=== PATIENT | female | born 1995 | race Caucasian/White ===

== ENCOUNTER 2017-08-14 09:45 | Outpatient (CLI) | payer BC ==
[2017-08-14 11:04] LABS: WHITE BLOOD COUNT 5.2 10^3/ul (4.8-10.8)
[2017-08-14 11:04] LABS: ADD MAN DIFF? NO; BASOPHILS % 0.2 % (0.0-2.0); EOSINOPHILS % 0.8 % (0.0-7.0); HEMATOCRIT 36.3 % (37.0-47.0); HEMOGLOBIN 12.4 g/dl (12.0-16.0); LYMPHOCYTES # 1.3 10^3/ul (0.8-2.9); LYMPHOCYTES % 24.1 % (15.0-51.0); MEAN CORPUSCULAR HEMOGLOBIN 31.1 pg (29.0-33.0); MEAN CORPUSCULAR HGB CONC 34.2 g/dl (32.0-37.0); MEAN PLATELET VOLUME 11.3 fl (7.4-10.4); MONOCYTE # 0.3 10^3/ul (0.3-0.9); MONOCYTES % 5.8 % (0.0-11.0); NEUTROPHIL # 3.6 10^3/ul (1.6-7.5); NEUTROPHILS % 68.5 % (39.0-77.0); PLATELET COUNT 180 10^3/UL (140-415); RED BLOOD COUNT 3.99 10^6/ul (4.20-5.40); RED CELL DISTRIBUTION WIDTH 12.9 % (11.5-14.5)
[2017-08-14 11:05] LABS: COLLECTION PERIOD 24 hrs
[2017-08-14 11:13] LABS: ADD UMIC YES; UR ASCORBIC ACID NEGATIVE (NEGATIVE); UR BILIRUBIN (Dip) NEGATIVE (NEGATIVE); UR BLOOD (Dip) NEGATIVE (NEGATIVE); UR CLARITY CLEAR (CLEAR); UR COLOR STRAW (YELLOW); UR GLUCOSE (Dip) NEGATIVE (NEGATIVE); UR KETONES (Dip) NEGATIVE (NEGATIVE); UR LEUKOCYTE ESTERASE (Dip) 2+ Leu/ul (NEGATIVE); UR NITRITE (Dip) NEGATIVE (NEGATIVE); UR RBC 5 /HPF (0-5); UR SPECIFIC GRAVITY (Dip) 1.004 (1.003-1.030); UR SQUAMOUS EPITHELIAL CELL FEW /HPF (FEW); UR TOTAL PROTEIN (Dip) NEGATIVE (NEGATIVE); UR UROBILINOGEN (Dip) NEGATIVE (NEGATIVE); UR WBC 5 /HPF (0-5)
[2017-08-14 11:26] LABS: ALANINE AMINOTRANSFERASE 50 IU/L (13-69); ALBUMIN 3.4 g/dl (3.3-4.9); ALBUMIN/GLOBULIN RATIO 1.21; ALKALINE PHOSPHATASE 257 IU/L (42-121); ANION GAP 13 (8-16); ASPARTATE AMINO TRANSFERASE 51 IU/L (15-46); BILIRUBIN,INDIRECT 0.2 mg/dl (0-1.1); BILIRUBIN,TOTAL 0.2 mg/dl (0.2-1.3); BLOOD UREA NITROGEN 10 mg/dl (7-20); CALCIUM 9.1 mg/dl (8.4-10.2); CARBON DIOXIDE 24 mmol/L (21-31); CHLORIDE 104 mmol/L (97-110); CREATININE 0.81 mg/dl (0.44-1.00); GLUCOSE 80 mg/dl (70-220); POTASSIUM 4.2 mmol/L (3.5-5.1); SODIUM 137 mmol/L (135-144); TOTAL PROTEIN 6.2 g/dl (6.1-8.1); URIC ACID 6.6 mg/dl (3.1-7.9)
[2017-08-14 11:43] LABS: INR 0.86; PROTIME 11.8 Sec (11.9-14.9); PT RATIO 0.9
[2017-08-14 11:44] LABS: PARTIAL THROMBOPLASTIN TIME 28.2 Sec (25.0-35.0)
[2017-08-14 11:59] LABS: COLLECTION PERIOD 24 hrs; SCRET 0.81 mg/dl (0.44-1.00); VOLUME 6200 ml/24hrs
[2017-08-14 12:00] LABS: CREATININE CLEARANCE 89.4 mls/min (84.0-162.0); CREATININE,URINE RANDOM 16.81 mg/dl (20-320)
[2017-08-14 12:19] LABS: VOLUME 6200 mls
== END 2017-08-14 17:32 | disposition home or self-care (01) ==
LOC: OBT 09:45 → L-D 09:46 → OBT 17:32
DX: O26.893 Other specified pregnancy related conditions, third trimester (principal); Z3A.36 36 weeks gestation of pregnancy; R03.0 Elevated blood-pressure reading, without diagnosis of hypertension
CPT/HCPCS: 36415; 76815; 76818; 80053; 81001; 82575; 84156; 84560; 85025; 85384; 85610; 85730

== ENCOUNTER 2017-08-18 23:46 | Inpatient (IN) | payer BC ==
[2017-08-19 00:51] LABS: ADD UMIC YES; UR ASCORBIC ACID NEGATIVE (NEGATIVE); UR BILIRUBIN (Dip) NEGATIVE (NEGATIVE); UR BLOOD (Dip) NEGATIVE (NEGATIVE); UR CLARITY CLEAR (CLEAR); UR COLOR STRAW (YELLOW); UR GLUCOSE (Dip) NEGATIVE (NEGATIVE); UR KETONES (Dip) NEGATIVE (NEGATIVE); UR LEUKOCYTE ESTERASE (Dip) 1+ Leu/ul (NEGATIVE); UR NITRITE (Dip) NEGATIVE (NEGATIVE); UR RBC 2 /HPF (0-5); UR SPECIFIC GRAVITY (Dip) 1.004 (1.003-1.030); UR TOTAL PROTEIN (Dip) NEGATIVE (NEGATIVE); UR UROBILINOGEN (Dip) NEGATIVE (NEGATIVE); UR WBC 2 /HPF (0-5)
[2017-08-19 01:13] LABS: CREATININE,URINE RANDOM 30.05 mg/dl (20-320); PROTEIN/CREAT RATIO 0.73 RATIO
[2017-08-19 01:18] LABS: ADD MAN DIFF? NO
[2017-08-19 01:21] LABS: WHITE BLOOD COUNT 6.3 10^3/ul (4.8-10.8)
[2017-08-19 01:21] LABS: BASOPHILS % 0.2 % (0.0-2.0); EOSINOPHILS # 0.1 10^3/ul (0.0-0.5); EOSINOPHILS % 0.8 % (0.0-7.0); HEMATOCRIT 36.3 % (37.0-47.0); HEMOGLOBIN 12.6 g/dl (12.0-16.0); LYMPHOCYTES # 1.7 10^3/ul (0.8-2.9); LYMPHOCYTES % 27.3 % (15.0-51.0); MEAN CORPUSCULAR HEMOGLOBIN 31.3 pg (29.0-33.0); MEAN CORPUSCULAR HGB CONC 34.7 g/dl (32.0-37.0); MEAN CORPUSCULAR VOLUME 90.3 fl (82.0-101.0); MONOCYTE # 0.4 10^3/ul (0.3-0.9); MONOCYTES % 5.9 % (0.0-11.0); NEUTROPHIL # 4.1 10^3/ul (1.6-7.5); NEUTROPHILS % 65.3 % (39.0-77.0); PLATELET COUNT 179 10^3/UL (140-415); RED BLOOD COUNT 4.02 10^6/ul (4.20-5.40); RED CELL DISTRIBUTION WIDTH 13.1 % (11.5-14.5)
[2017-08-19 01:51] LABS: ALANINE AMINOTRANSFERASE 40 IU/L (13-69); ALBUMIN 3.5 g/dl (3.3-4.9); ALBUMIN/GLOBULIN RATIO 1.02; ALKALINE PHOSPHATASE 275 IU/L (42-121); ANION GAP 16 (8-16); ASPARTATE AMINO TRANSFERASE 46 IU/L (15-46); BILIRUBIN,INDIRECT 0.1 mg/dl (0-1.1); BILIRUBIN,TOTAL 0.1 mg/dl (0.2-1.3); BLOOD UREA NITROGEN 10 mg/dl (7-20); CALCIUM 9.5 mg/dl (8.4-10.2); CARBON DIOXIDE 23 mmol/L (21-31); CHLORIDE 104 mmol/L (97-110); GLUCOSE 72 mg/dl (70-220); INR 0.85; POTASSIUM 3.8 mmol/L (3.5-5.1); PROTIME 11.7 Sec (11.9-14.9); PT RATIO 0.9; SODIUM 139 mmol/L (135-144); TOTAL PROTEIN 6.9 g/dl (6.1-8.1); URIC ACID 7.6 mg/dl (3.1-7.9)
[2017-08-19 01:52] LABS: PARTIAL THROMBOPLASTIN TIME 28.7 Sec (25.0-35.0)
[2017-08-19] MEDS ORDERED: LACTATED RINGER'S 500 ML IV (03:00)
[2017-08-19] MEDS ORDERED: OXYTOCIN 30 UNITS/LR 500 ML IV (03:00)
[2017-08-19] MEDS ORDERED: IBUPROFEN 600 MG TAB PO (03:00)
[2017-08-19] MEDS ORDERED: LIDOCAINE 1% (MPF) 30 ML INJ INJ (03:00)
[2017-08-19] MEDS ORDERED: METHYLERGONOVINE 0.2 MG INJ IM (03:00)
[2017-08-19] MEDS: LACTATED RINGER'S 500 ML IV ×5 (05:50→21:50)
[2017-08-19 09:14] LABS: BARBITURATES Negative (NEGATIVE); BENZODIAZEPINES Negative (NEGATIVE); CANNABINOIDS Negative (NEGATIVE); COCAINE Negative (NEGATIVE); OPIATES Negative (NEGATIVE)
[2017-08-19 09:23] LABS: AMPHETAMINE/METHAMPHETAMINE POSITIVE (NEGATIVE)
[2017-08-19] MEDS: AMPICILLIN 2 GM/NS (PMX) 100 ML IVPB (10:30)
[2017-08-19] MEDS ORDERED: MINERAL OIL LIGHT 10 ML VIAL TOP (10:30)
[2017-08-19] MEDS: DINOPROSTONE 10 MG VAG SUPP VAG (10:37)
[2017-08-19] MEDS: AMPICILLIN 1 GM/NS (PMX) 50 ML IVPB ×3 (13:50→21:01)
[2017-08-19] MEDS: BUTORPHANOL 2 MG INJ IV (14:08)
[2017-08-19 16:01] LABS: HEPATITIS B SURFACE ANTIGEN NEGATIVE (NEGATIVE)
[2017-08-19] MEDS ORDERED: FENTAnyl 2MCG/ML-ROPIV 0.2% 100 ML (20:15)
[2017-08-19] MEDS ORDERED: DIPHENHYDRAMINE 50 MG INJ IV (20:30)
[2017-08-19] MEDS ORDERED: ONDANSETRON 4 MG INJ IV (20:30)
[2017-08-19] MEDS ORDERED: NALOXONE (0.4 MG/ML) INJ IV (20:30)
[2017-08-19] MEDS ORDERED: KETOROLAC 30 MG INJ IV (20:30)
[2017-08-19] MEDS ORDERED: HYDROmorphONE 0.5 MG/0.5 ML SYG IV ×2 (20:30)
[2017-08-19 22:36] LABS: RAPID PLASMA REAGIN NONREACTIVE (NR)
[2017-08-20] MEDS: AMPICILLIN 1 GM/NS (PMX) 50 ML IVPB ×6 (01:01→22:03)
[2017-08-20] MEDS: LACTATED RINGER'S 500 ML IV ×3 (03:14→14:19)
[2017-08-20] MEDS: FENTAnyl 2MCG/ML-ROPIV 0.2% 100 ML BAG EPI ×3 (04:34→22:01)
[2017-08-20] MEDS: OXYTOCIN 30 UNITS/LR 500 ML IV (09:43)
[2017-08-20] MEDS: LACTATED RINGER'S 1,000 ML IV (20:58)
[2017-08-20] MEDS ORDERED: DEXTROSE 5%-LR 1,000 ML IV (22:27)
[2017-08-20] MEDS: DEXTROSE 5%-LR 1,000 ML IV (22:37)
[2017-08-21] MEDS: ACETAMINOPHEN 325 MG TAB PO ×2 (01:30→05:45)
[2017-08-21] MEDS: AMPICILLIN 1 GM/NS (PMX) 50 ML IVPB ×2 (01:55→06:18)
[2017-08-21] MEDS: LACTATED RINGER'S 1,000 ML IV (02:18)
[2017-08-21] MEDS: OXYTOCIN 30 UNITS/LR 500 ML IV ×3 (03:51→08:02)
[2017-08-21] MEDS: CARBOPROST 250 MCG INJ IM (04:03)
[2017-08-21] MEDS: MINERAL OIL LIGHT 10 ML VIAL TOP (04:04)
[2017-08-21] MEDS: MISOPROSTOL 200 MCG TAB PR (04:09)
[2017-08-21] MEDS: LABETALOL HCL 20MG INJ IV (04:50)
[2017-08-21] MEDS: CLINDAMYCIN 300 MG CAP PO (06:19)
[2017-08-21] MEDS ORDERED: CARBOPROST 250 MCG INJ IM (10:00)
[2017-08-21] MEDS ORDERED: ZOLPIDEM 5 MG TAB PO (10:00)
[2017-08-21] MEDS ORDERED: OXYCODONE/ASPIRIN (4.88/325) TAB PO ×2 (10:00)
[2017-08-21] MEDS ORDERED: MISOPROSTOL 200 MCG TAB PR (10:00)
[2017-08-21] MEDS ORDERED: METHYLERGONOVINE 0.2 MG INJ IM (10:00)
[2017-08-21] MEDS ORDERED: OXYTOCIN 30 UNITS/LR 500 ML IV (10:00)
[2017-08-21] MEDS: IBUPROFEN 600 MG TAB PO ×2 (11:41→17:37)
[2017-08-21] MEDS: BENZOCAINE 20% 56 ML SPRAY TOP (11:42)
[2017-08-21] MEDS: WITCH HAZEL/GLYCERIN PAD PR (11:42)
[2017-08-21] MEDS: LANOLIN 7 GM TUBE TOP (11:42)
[2017-08-21 14:55] LABS: ADD MAN DIFF? NO
[2017-08-21 14:57] LABS: BASOPHILS % 0.1 % (0.0-2.0); EOSINOPHILS % 0.1 % (0.0-7.0); HEMATOCRIT 24.8 % (37.0-47.0); HEMOGLOBIN 8.8 g/dl (12.0-16.0); LYMPHOCYTES # 1.6 10^3/ul (0.8-2.9); LYMPHOCYTES % 10.3 % (15.0-51.0); MEAN CORPUSCULAR HEMOGLOBIN 31.7 pg (29.0-33.0); MEAN CORPUSCULAR HGB CONC 35.5 g/dl (32.0-37.0); MEAN CORPUSCULAR VOLUME 89.2 fl (82.0-101.0); MEAN PLATELET VOLUME 10.8 fl (7.4-10.4); MONOCYTE # 0.8 10^3/ul (0.3-0.9); MONOCYTES % 4.9 % (0.0-11.0); NEUTROPHIL # 13.2 10^3/ul (1.6-7.5); NUCLEATED RED BLOOD CELLS% 0.3 /100WBC (0.0-0.0); PLATELET COUNT 140 10^3/UL (140-415); RED BLOOD COUNT 2.78 10^6/ul (4.20-5.40); RED CELL DISTRIBUTION WIDTH 13.1 % (11.5-14.5)
[2017-08-21 14:57] LABS: WHITE BLOOD COUNT 15.7 10^3/ul (4.8-10.8)
[2017-08-21] MEDS: CEPHALEXIN 500 MG CAP PO (17:37)
[2017-08-21] MEDS: SENNA/DOCUSATE NA (8.6MG/50MG) TAB PO (21:00)
[2017-08-22] MEDS: CEPHALEXIN 500 MG CAP PO ×4 (00:07→17:39)
[2017-08-22] MEDS: IBUPROFEN 600 MG TAB PO ×4 (00:07→17:39)
[2017-08-22] MEDS: SENNA/DOCUSATE NA (8.6MG/50MG) TAB PO ×2 (09:00→21:00)
[2017-08-22 09:04] LABS: ADD MAN DIFF? NO
[2017-08-22 09:18] LABS: BASOPHILS % 0.2 % (0.0-2.0); EOSINOPHILS # 0.2 10^3/ul (0.0-0.5); EOSINOPHILS % 1.3 % (0.0-7.0); HEMATOCRIT 23.9 % (37.0-47.0); HEMOGLOBIN 8.3 g/dl (12.0-16.0); LYMPHOCYTES # 2.2 10^3/ul (0.8-2.9); LYMPHOCYTES % 18.1 % (15.0-51.0); MEAN CORPUSCULAR HEMOGLOBIN 31.6 pg (29.0-33.0); MEAN CORPUSCULAR HGB CONC 34.7 g/dl (32.0-37.0); MEAN CORPUSCULAR VOLUME 90.9 fl (82.0-101.0); MEAN PLATELET VOLUME 11.6 fl (7.4-10.4); MONOCYTE # 0.4 10^3/ul (0.3-0.9); MONOCYTES % 3.7 % (0.0-11.0); NEUTROPHIL # 9.1 10^3/ul (1.6-7.5); NEUTROPHILS % 75.8 % (39.0-77.0); NUCLEATED RED BLOOD CELLS% 0.3 /100WBC (0.0-0.0); PLATELET COUNT 149 10^3/UL (140-415); RED BLOOD COUNT 2.63 10^6/ul (4.20-5.40); RED CELL DISTRIBUTION WIDTH 13.7 % (11.5-14.5)
[2017-08-22] MEDS: AL HYDROX/MG HYDROX/SIMETH 30 ML CUP PO (17:39)
[2017-08-23] MEDS: IBUPROFEN 600 MG TAB PO ×4 (00:21→17:21)
[2017-08-23] MEDS: CEPHALEXIN 500 MG CAP PO ×4 (00:21→17:21)
[2017-08-23] MEDS: AL HYDROX/MG HYDROX/SIMETH 30 ML CUP PO ×3 (07:30→17:30)
[2017-08-23] MEDS: SENNA/DOCUSATE NA (8.6MG/50MG) TAB PO (09:00)
[2017-08-23] MEDS: DIPHTH/TET/ACEL PERTUSS (ADULT) 0.5 ML VIAL IM* (09:00)
== END 2017-08-23 18:00 | disposition home or self-care (01) | DRG 775 ==
LOC: OBT 23:46 → PP1 08-21 09:25 → L-D 23:49
PROC: 10E0XZZ Delivery of Products of Conception, External Approach (ICD-10-PCS; principal; 2017-08-21)
DX: O80 Encounter for full-term uncomplicated delivery (principal); Z37.0 Single live birth; Z3A.38 38 weeks gestation of pregnancy
CPT/HCPCS: 62319; 80053; 80307; 81001; 81003; 82570; 84560; 85025; 85384; 85610; 85730; 86592; 86900; 86901; 87340; 90715; 99464